=== PATIENT | male | born 1995 | race Caucasian/White ===

== ENCOUNTER 2022-12-20 14:29 | Emergency (ER) | payer SELFPAY ==
[~2022-12-20] VITALS: Ht 170.2 cm; Wt 82.0 kg
[2022-12-20 14:32] VITALS: O2SAT 100
[2022-12-20] MEDS ORDERED: ACETAMINOPHEN 325MG TABLET PO ONE (14:45)
[2022-12-20] MEDS ORDERED: IBUPROFEN 400MG TABLET PO ONE (14:45)
[2022-12-20 15:16] LABS: BASOPHILS % 0.6 % (0.0-2.0); EOSINOPHILS % 1.5 % (0.0-5.0); HEMATOCRIT. 44.4 % (42.0-52.0); HEMOGLOBIN. 15.6 g/dL (14.0-18.0); LYMPHOCYTES % 12.4 % (20.0-50.0); MEAN CORPUSCULAR HEMOGLOBIN 29.9 pg (28.0-32.0); MEAN CORPUSCULAR HGB CONC 35.1 g/dL (31.0-37.0); MEAN CORPUSCULAR VOLUME 85.1 fL (80.0-94.0); MEAN PLATELET VOLUME 8.1 fl (7.4-10.4); MONOCYTES % 6.1 % (2.0-8.0); NEUTROPHILS % 79.4 % (40.0-76.0); PLATELET 246 x1000/uL (130-400); RED BLOOD CELL COUNT 5.22 mill/uL (4.7-6.1); RED CELL DISTRIBUTION WIDTH 13.1 % (11.6-14.6); WHITE BLOOD COUNT 9.7 x1000/uL (4.5-11.0)
[2022-12-20 15:26] LABS: CHLORIDE 105 mEq/L (98-107); INDEX HEMOLYSI 2 (1-3); INDEX ICTERIC 1 (1-4); INDEX LIPEMIC 1 (1-3); POTASSIUM 3.7 mEq/L (3.5-5.1); SODIUM 138 mEq/L (136-145)
[2022-12-20 15:41] LABS: ALANINE AMINOTRANSFERASE 67 IU/L (13-61); ALBUMIN 4.3 g/dL (3.4-5.0); ASPARTATE AMINOTRANSFERASE 35 IU/L (15-37); BILIRUBIN TOTAL 0.3 mg/dL (0.1-1.0); CALCIUM 9.2 mg/dL (8.5-10.1); CARBON DIOXIDE 26 mEq/L (21-32); CREATININE 0.8 mg/dL (0.6-1.3); GLUCOSE 117 mg/dL (70-105); NT PRO B-TYPE NATRIURETIC PEP 15 pg/mL (5-125); PROTEIN TOTAL 7.8 g/dL (6.0-8.3); T4 FREE 0.84 ng/dL (0.76-1.46); TROPONIN I HIGH SENSITIVITY 6 ng/L (<78); UREA NITROGEN BLOOD 15 mg/dL (7-21)
[2022-12-20] MEDS ORDERED: IBUPROFEN 400MG TABLET PO NR (17:00)
[2022-12-20] MEDS ORDERED: ACETAMINOPHEN 325MG TABLET PO NR (17:00)
[2022-12-20 18:04] LABS: TROPONIN I HIGH SENSITIVITY 13 ng/L (<78)
[2022-12-20 21:09] VITALS: BP 126/84; PULSE 72; RESP 15
== END 2022-12-20 21:33 | disposition home or self-care (01) ==
LOC: ER 14:29
DX: R07.89 Other chest pain (principal); R51.9 Headache, unspecified; R53.1 Weakness
CPT/HCPCS: 36415; 71045; 80053; 83880; 84439; 84443; 84484; 85025; 93005; 99285